=== PATIENT | male | born 1960 | race Caucasian/White ===

== ENCOUNTER 2017-07-02 05:35 | Day surgery (SDC) | payer OTHER ==
[2017-06-27 13:45] VITALS: BMI 29.5
[~2017-07-02 05:35] MED LIST: LACTATED RINGERS 1,000 ML IV SCH
[2017-07-02 06:21] VITALS: TEMP 97.8
[2017-07-02] MEDS ORDERED: LIDOCAINE 1% 20 ML VIAL (10MG/ML) FOR IV START INTRADERMA ONE (06:21)
--- NOTE | 2017-07-02 07:17 | P.PCN ---
Date of Procedure: 07/02/17 Preoperative Diagnosis: Bilateral sacroiliitis Failed back surgery syndrome Postoperative Diagnosis: Same as above Procedure(s) Performed: Bilateral sacroiliac joint steroid injection under fluoroscopic guidance Anesthesia: MAC (IV conscious sedation with Versed and fentanyl) Surgeon: Poonam Yeh Pathology: none sent Condition: stable Disposition: PACU Description of Procedure: the patient was seen and identified in the preoperative holding area, risks and benefits and alternative of the procedure and possible complications discussed with the patient, patient signed the consent. an IV was started, and vital signs were monitored and were stable throughout the procedure, patient was placed in the prone position or table and the lumbosacral area was prepped and draped with a sterile fashion, vital signs were closely monitored during the procedure.The right sacroiliac joint was identified on the AP view of fluoroscopy then the C-arm was tilted to the left oblique position to superimpose the anterior and posterior joint lines on each other and to have a unified joint line with the target point at the inferior one third of this line. I used 22-gauge 3-1/2 inch Quincke spinal needle for this procedure and after getting into the sacroiliac joint I injected 20 mg of Kenalog +2.5 MLS of Marcaine 0.5%. The same procedure was repeated on the left side by tilting the C-arm to the right oblique position this time. At the target point was also at the inferior one third of this unified joint line. Using a 22-gauge 3-1/2 inch Quincke spinal needle I injected 20 mg of Kenalog plus 2.5 MLS of Marcaine 0.5% . Patient tolerated the procedure well without any complication, The patient returned to supine position after the back was cleaned and a Band- Aid applied, the patient transported to recovery room in stable condition and he was monitored for 30 minutes before he was discharged home and then patient was reexamined before going home and patient was discharged in stable condition and patient will follow up with the pain clinic in a few weeks
[2017-07-02] MEDS ORDERED: IV FLUID CONTINUATION 1,000 ML IV ONE (07:24)
[2017-07-02 07:28] VITALS: RESP 15
[2017-07-02 07:37] VITALS: BP 117/79; PULSE 72
--- NOTE | 2017-07-02 11:55 | FL ---
Fluoroscopy HISTORY: Pain 7 seconds fluoroscopy time supplied to the referring clinician. 1 intraoperative C-arm images docume nt the procedure. See dictated report from anesthesia.
== END 2017-07-02 07:58 | disposition home or self-care (01) ==
LOC: ORPAIN 05:35
PROVIDERS: ATTEND Anesthesiology
DX: M46.1 Sacroiliitis, not elsewhere classified (principal); M96.1 Postlaminectomy syndrome, not elsewhere classified
CPT/HCPCS: 27096; J2250; J3301; J3010; 99152

== ENCOUNTER → 2017-08-30 | Outpatient (CLI) | payer OTHER ==
[2017-08-30 13:13] VITALS: BP 145/92; PULSE 72; RESP 16
--- NOTE | 2017-08-30 13:39 | P.PN ---
Subjective Progress Note Date: 08/30/17 This is follow-up visit for this patient with a history of severe and chronic low back pain secondary to , and left sacroiliitis and failed back surgery syndrome lumbar area we have done R sacroiliac joint steroid injections the first one done in June 2017 and the second one done July 2017 he got more than 50% benefit after each injection and he is here today to discuss the results of the injectiions Patients currently on , Neurontin 100 mg every morning and 200 mg every afternoon and he is getting Mobic 7.5 mg twice a day Patient denies any side effects of the medication, denies excessive drowsiness or sleepiness, denies suicidal ideation, and reports that the current pain medication is NOT helping To control the pain and improve activity of daily living Patient denies any motor or sensory deficit , patient denies any fever or night sweats, denies any change in the bowel movements or urination Physical Examinations : 1-Constitutiona : Cooperative , not in acute distress . 2-HEENT : nech ; supple , no Lymphadenopathy , no Thyromegaly , normal thyroid size . eyes : no ptosis , no icterus, no photophobia . ENT : normal of hearing , normal oropharynx , no Thrush . 3- Respiratory : Chest clear to auscultations Bilaterally , no wheezing , no Rhonchi . 4- Cardiovascular : regular rate and rhythem , S1 , S2 , no S3 , no S4. 5- Gastrointestinal : abdomen soft no tenderness , bowel sounds positive all four quadrents , no organomegally . 6- Genitourinary : Defferred . 7- neurologic : Cranial nerve II to XII intact , no focal neurological deffecit . 8-psychatric : alert , oriented X 3 , appropriate affect , intact judgment and insight . 9-Lymphatic : no Lymphadenopathy . 10- musculoskeltal : exams of the Lumber spine = motor strength lower extremities ,thigh and legs .5/5 deep tendon reflexes : normal Knee Jerk , normal ankle Jerk . lumber facet Loading Test positive Sever tenderness over the Sacroiliac joint on the Right , and Left side Assessment and plan = Chronic low back pain secondary to sacroiliitis bilaterally , and failed back surgery syndrome lumbar area He had good results after the sacroiliac joint steroid injection done twice for this reason patient will be good candidate for radiofrequency ablation of the sacroiliac joint Which is radiofrequency ablation of L5 -S1 dorsal dramas and radiofrequency ablation of the lateral branches of S1-S2/S3 Prescription refill was given for Neurontin 100 mg every morning and 200 mg daily at bedtime and Mobic 7.5 mg twice a day Objective - Vital Signs Vital signs: Vital Signs Temp Pulse 72 08/30/17 12:59 Resp 16 08/30/17 12:59 BP 145/92 08/30/17 12:59 Pulse Ox 96 08/30/17 12:59 Intake & Output 08/29/17 08/30/17 08/30/17 18:59 06:59 18:59 Weight 90.718 kg
== END | disposition home or self-care (01) ==
LOC: PNWHC3 12:06
PROVIDERS: ATTEND Specialist
DX: G89.29 Other chronic pain (principal); M54.5 Low back pain; M46.1 Sacroiliitis, not elsewhere classified; M96.1 Postlaminectomy syndrome, not elsewhere classified; Z79.52 Long term (current) use of systemic steroids; Z79.899 Other long term (current) drug therapy; Z79.1 Long term (current) use of non-steroidal anti-inflammatories (NSAID)
CPT/HCPCS: 99211

== ENCOUNTER 2017-10-02 07:35 | Day surgery (SDC) | payer OTHER ==
[2017-09-27 11:19] VITALS: BMI 28.7
[~2017-10-02 07:35] MED LIST changes: +LACTATED RINGERS 1,000 ML IV ONE; -LACTATED RINGERS 1,000 ML IV SCH
[2017-10-02 08:25] VITALS: TEMP 97.6
[2017-10-02] MEDS ORDERED: LIDOCAINE 1% 20 ML VIAL (10MG/ML) FOR IV START INTRADERMA ONE (08:28)
[2017-10-02] MEDS ORDERED: IV FLUID CONTINUATION 1,000 ML IV ONE (09:54)
--- NOTE | 2017-10-02 09:55 | P.PCN ---
Date of Procedure: 10/02/17 Procedure(s) Performed: PREOPERATIVE DIAGNOSIS: 1-. Failed Back surgery syndrome and lumbar area 2- sacroiliit. post operative Diagnosis: . 1-Failed back surgery syndrome lumbar area . 2 -sacroiliit. PROCEDURES: 1- Left radiofrequency thermocoagulation/ablation of the L5 dorsal ramus. 2- Left multi-site radiofrequency thermocoagulation/ablation of the S1, S2, lateral branchs. The procedure was performed using fluoroscopic guidance during needle placement to assure proper position and maximize safety . ANESTHESIA: LOCAL ANESTHESIA = moderate sedation with intravenous versed 2 mg and Fentanyle 50 mcg EBL: NONE INDICATION/MEDICAL NECESSITY: History of low back pain secondary to sacroiliitis and Failed back surgery syndrome ,unresponsive to more conservative treatments. The patient reported more than 50% relief of pain symptoms following 2 previous diagnostic blocks with Bupivacaine. PROCEDURE DESCRIPTION: The patient was seen and identified in the preoperative area. Risks, benefits, complications, and alternatives were discussed with the patient. The patient agreed to proceed with the procedure and signed the consent. Vital signs were checked before and after the procedure and they remained stable. Patient ambulated to the procedure room and time out was completed. The patient was placed in the prone position on the procedure table and a pillow was placed under the abdomen to reduce lumbar lordosis. The lumbosacral area was prepped and draped in the usual sterile fashion. Critical pause was taken. L5 Dorsal Ramus RF: Using right oblique fluoroscopy, the junction of the transverse process and the superior articular process of the left S1 vertebra, which correspond to the fluoroscopic image of the "eye of the Macario dog" was identified. Subsequently, a 10-cm 20 -gauge radiofrequency cannula with a 10-mm active tip was advanced under fluoroscopic guidance until contact was made with periosteum. At this level, the Sensory testing of the L5 dorsal ramus was performed at 50 Hz and 0 to 1 volt with production of concordant pain starting at 0.5 volt. Motor stimulation was done at 2.5 Hz with stimulation of mulitifidus muscle contration . No radicular symptoms or paresthesias were produced during the testing. Subsequently, the L5 dorsal ramus was subjected to a radiofrequency ablation at 80 degree celsius for 90 seconds . after 0.5% Bupivacaine 1 ml injected , after negative aspirations S1, S3, Lateral Branch RF: The lateral margins of the Right S1, S2, foramina were identified using AP fluoroscopy. Under fluoroscopic guidance, three 10-cm 20 -gauge radiofrequency cannula with a 10-mm active tip were inserted at 8-10 mm peripheral to the posterior S1 foramen, at various locations using clock-face coordinates. The center of the clock was registered at the lateral margin of the foramen. The 9: 30, 8:00, and 6:30 oclock positions were used. At this level, the sensory testing of the S1 lateral branch was performed at 50 Hz and 0 to 1 volt at the three levels with production of concordant pain starting at 0.5 volt. Motor stimulation was done at 2.5 Hz. No radicular symptoms or paresthesias were produced during the testing. Subsequently, the S1 lateral branch was subjected to a radiofrequency ablation at a mode of 90 seconds at 80 degrees Celsius at the 3 levels after negative motor and sensory testing and after injecting 0.5 ml of preservative free Bupivacaine 0.5 %. The same procedure was performed at the level of the S2 foramen. I was not able to visualize S3 foramina ,for this reason ,I ended up doing only the lateral branches f S1 and S2 only. The needle was withdrawn intact after each injection. COMPLICATIONS: The patient tolerated the procedure well without any acute complications. DISPOSTION/PLAN: The patient ambulated to the recovery area after the procedure in a stable condition for observation. Patient was reexamined prior to discharge. Patient was observed for 30 minutes in the recovery area and was discharged home, accompanied by an adult, after meeting discharged criteria. Discharge instructions were give to the patient by the staff. Patient was specifically instructed not to drive today and to rest for the rest of the day. The patient will schedule a follow up visit in the clinic in weeks or earlier if needed.
[2017-10-02 10:10] VITALS: BP 145/87; RESP 18
[2017-10-02 10:22] VITALS: PULSE 78
--- NOTE | 2017-10-02 10:46 | FL ---
Fluoroscopy HISTORY: Pain 44 seconds fluoroscopy time supplied to the referring clinician. 9 intraoperative C-arm images docum ent the procedure. See dictated report from anesthesia.
== END 2017-10-02 10:25 | disposition home or self-care (01) ==
LOC: ORPAIN 07:35
PROVIDERS: ATTEND Specialist
DX: M96.1 Postlaminectomy syndrome, not elsewhere classified (principal); M46.1 Sacroiliitis, not elsewhere classified; Z91.030 Bee allergy status
CPT/HCPCS: 64640 ×2; 64635; J2250; J3301; J3010; 99152; 99153

== ENCOUNTER → 2017-11-01 | Day surgery (SDC) | payer OTHER ==
[2017-10-30 14:18] VITALS: BMI 28.7
[~2017-11-01] MED LIST changes: +IV FLUID CONTINUATION 1,000 ML IV ONE; +LACTATED RINGERS 1,000 ML IV SCH; +LIDOCAINE 1% 20 ML VIAL (10MG/ML) FOR IV START INTRADERMA ONE
[2017-11-01 08:25] VITALS: TEMP 97.7
--- NOTE | 2017-11-01 11:59 | P.PCN ---
Date of Procedure: 11/01/17 Procedure(s) Performed: PREOPERATIVE DIAGNOSIS: 1- sacroiliit. 2-failed back surgery syndrome and lumbar area post operative Diagnosis: Same as preop diagnosis PROCEDURES: 1- Right radiofrequency thermocoagulation/ablation of the L5 dorsal ramus. 2- Right multi-site radiofrequency thermocoagulation/ablation of the S1, S2, lateral branchs. The procedure was performed using fluoroscopic guidance during needle placement to assure proper position and maximize safety . ANESTHESIA: LOCAL ANESTHESIA = moderate sedation with intravenous versed 2 mg ,and Fentanyle 100 mcg EBL: NONE INDICATION/MEDICAL NECESSITY: History of low back pain secondary to sacroiliitis and lumbosacral arthropathy unresponsive to more conservative treatments. The patient reported more than 50 % relief of pain symptoms following 2 previous diagnostic blocks with Bupivacaine. PROCEDURE DESCRIPTION: The patient was seen and identified in the preoperative area. Risks, benefits, complications, and alternatives were discussed with the patient. The patient agreed to proceed with the procedure and signed the consent. Vital signs were checked before and after the procedure and they remained stable. Patient ambulated to the procedure room and time out was completed. The patient was placed in the prone position on the procedure table and a pillow was placed under the abdomen to reduce lumbar lordosis. The lumbosacral area was prepped and draped in the usual sterile fashion. Critical pause was taken. L5 Dorsal Ramus RF: Using right oblique fluoroscopy, the junction of the transverse process and the superior articular process of the right S1 vertebra, which correspond to the fluoroscopic image of the "eye of the Macario dog" was identified. Subsequently, a 10-cm 20 -gauge radiofrequency cannula with a 10-mm active tip was advanced under fluoroscopic guidance until contact was made with periosteum. At this level, the Sensory testing of the L5 dorsal ramus was performed at 50 Hz and 0 to 1 volt with production of concordant pain starting at 0.5 volt. Motor stimulation was done at 2.5 Hz with stimulation of mulitifidus muscle contration . No radicular symptoms or paresthesias were produced during the testing. Subsequently, the L5 dorsal ramus was subjected to a radiofrequency ablation at 80 degree celsius for 90 seconds . after 0.5% Bupivacaine 1 ml injected at each level after negative aspirations . S1, S2 Lateral Branch RF: The lateral margins of the Right S1, S2, foramina were identified using AP fluoroscopy. Under fluoroscopic guidance, three 10-cm 20 -gauge radiofrequency cannula with a 10-mm active tip were inserted at 8-10 mm peripheral to the posterior S1 foramen, at various locations using clock-face coordinates. The center of the clock was registered at the lateral margin of the foramen. The 2: 30, 4:00, and 5:30 oclock positions were used. At this level, the sensory testing of the S1 lateral branch was performed at 50 Hz and 0 to 1 volt at the three levels with production of concordant pain starting at 0.5 volt. Motor stimulation was done at 2.5 Hz. No radicular symptoms or paresthesias were produced during the testing. Subsequently, the S1 lateral branch was subjected to a radiofrequency ablation at a mode of 90 seconds at 80 degrees Celsius at the 3 levels after negative motor and sensory testing and after injecting 0.5 ml of preservative free Bupivacaine 0.5 %. The same procedure was performed at the level of the S2 foramen. I did not visualize the S3 foramina for the season the lateral branches for a S 3 was not done. The needle was withdrawn intact after each injection. COMPLICATIONS: The patient tolerated the procedure well without any acute complications. DISPOSTION/PLAN: The patient ambulated to the recovery area after the procedure in a stable condition for observation. Patient was reexamined prior to discharge. Patient was observed for 30 minutes in the recovery area and was discharged home, accompanied by an adult, after meeting discharged criteria. Discharge instructions were give to the patient by the staff. Patient was specifically instructed not to drive today and to rest for the rest of the day. The patient will schedule a follow up visit in the clinic in weeks or earlier if needed.
[2017-11-01 12:10] VITALS: BP 142/88; PULSE 68; RESP 18
--- NOTE | 2017-11-01 12:11 | FL ---
Fluoroscopy HISTORY: Pain 30 seconds fluoroscopy time supplied to the referring clinician. 7 intraoperative C-arm images docum ent the procedure. See dictated report from anesthesia.
== END | disposition home or self-care (01) ==
LOC: ORPAIN 08:00
PROVIDERS: ATTEND Specialist
DX: M46.1 Sacroiliitis, not elsewhere classified (principal); M47.817 Spondylosis without myelopathy or radiculopathy, lumbosacral region; M96.1 Postlaminectomy syndrome, not elsewhere classified; Z91.030 Bee allergy status
CPT/HCPCS: 64635; 64640 ×2; J2250; J1030; J3010; 99152; 99153

== ENCOUNTER → 2017-11-27 | Outpatient (CLI) | payer OTHER ==
[2017-11-27 11:37] VITALS: BP 137/95; PULSE 73; RESP 18
--- NOTE | 2017-11-27 11:55 | P.PN ---
Progress Note - Text Progress Note Date: 11/27/17 Patient returns for followup for chronic back pain with radiation to hips. Patient recently underwent bilateral SI RFA, which provided very little relief. Patient continues on only OTC medications for pain with some relief. Patient denies adverse drug effects from medications. Today, pt denies new-onset weakness, bowel/bladder incontinence, or any other signs or symptoms of cauda equina syndrome. There are no signs of acute intoxication, and no indications of medication diversion or overuse. In addition to above, 13-point review of systems is also negative for chest pain , shortness of breath, changes in vision, changes in hearing, new onset weakness , abdominal pain, diarrhea, extreme fatigue, malaise, fever, skin changes, homicidal or suicidal ideation, or bowel or bladder incontinence. Vital Signs: Reviewed in EMR Gen: WDWN, AAOx3, NAD HEENT: NCAT, EOMI, hearing grossly normal Pulm: resp unlabored Abd: soft, NT, ND Neck: supple, trachea midline ROM in flexion lumbar spine: reduced ROM in extension lumbar spine: reduced Lumbar paravertebral tenderness: + Facet loading: + bilateral, R > L SI joint tenderness: + R > L Keith's test: + R > L Straight leg raise: +RLE at 5 degrees Imaging: Reviewed in EMR Assessment: 1. lumbar PLPS 2. epidural adhesions 3. chronic pain syndrome Plan: 1. Explanation: Opioid and psychological risk scores were reviewed. Diagnoses , prognoses, and multiple treatment options including but not limited to physical therapy, interventional therapies, adjuvant medical therapies, narcotic medication therapies, and surgery were discussed with the patient and all questions were answered to the patient's satisfaction. 2. Opioid agreement: no opioids prescribed today 3. Counseling: The patient was counseled extensively on BODY MASS INDEX, EXERCISE. Specifically, the patient was instructed regarding the importance of weight control, and exercise in the context of both chronic pain and overall health. 4. Procedures: caudal ABIOLA with lysis of adhesions 5. Consultations: None 6. Investigations: UDS not done today, MAPS queried and appropriate 7. Medications: none prescribed 8. Disposition: f/u for procedure as scheduled PQRS measures: 1-Patient's medications are documented in the chart. 2-Tobacco use is negative 3-Patient has not had a pneumococcal vaccine. 4-Advanced care planning discussed, patient unable to give. 5-Opioid contract NOT signed with the patient. 6-Pain positive, follow-up visit or procedure scheduled 7-Patient's blood pressure measured and documented, and patient will follow up with the primary care due to hypertension. 8-Patient's weight was measured, and body mass index ABOVE the normal limits, and counseling was done. Patient instructed to follow up with PCP. 9-Patient WAS NOT identified as an unhealthy alcohol user.
== END | disposition home or self-care (01) ==
LOC: PNWHC3 11:04
PROVIDERS: ATTEND Anesthesiology
DX: G89.4 Chronic pain syndrome (principal); M96.1 Postlaminectomy syndrome, not elsewhere classified; G96.12 Meningeal adhesions (cerebral) (spinal); Z79.899 Other long term (current) drug therapy
CPT/HCPCS: 99211